=== PATIENT | female | born 2000 | race Two or more races ===

== ENCOUNTER 2025-01-19 05:30 | Emergency (ER) | payer MEDICAID, SELFPAY ==
[2025-01-19 05:36] VITALS: BMI 24.8
[2025-01-19 05:46] VITALS: BP 111/75; PULSE 98; RESP 19; TEMP 36.6; O2SAT 99
--- NOTE | 2025-01-19 05:47 | XR_ITS ---
Examination: Pelvic ultrasound, transabdominal, complete Technique: Transabdominal ultrasound of the pelvis performed using grayscale imaging Date and time of exam: January 19, 2025, 0704 hours INDICATIONS: Removal IUD 3 days ago followed by vaginal bleeding and pain FINDINGS: Intrauterine device vaginal canal Uterus 7.9 cm no uterine mass or intrauterine gestation Endometrial stripe 0.8 cm Right ovary 2.1 cm arterial flow Left ovary 2.5 cm artery with flow IMPRESSION: Intrauterine device in vaginal canal
--- NOTE | 2025-01-19 05:48 | PD.EDRME ---
Rapid Medical Screening Exam RME Arrival date/time: 01/19/25 05:30 This is a case of a 24-year-old female who came in the emergency room due to vaginal bleeding patient removed his IUD last and started to have heavy vaginal bleeding with pelvic cramping due to persistence of the symptoms this patient decided to start consult here in the emergency room Vital signs: Vital Signs Temperature 98 F 01/19/25 05:46 Pulse Rate 98 01/19/25 05:46 Respiratory Rate 19 01/19/25 05:46 Blood Pressure 111/75 01/19/25 05:46 Pulse Oximetry (%) 99 01/19/25 05:46 Oxygen Delivery Method Room Air 01/19/25 05:46
[2025-01-19 06:29] LABS: Basophils # (Auto) 0.1 Thou/mm3 (0.0-0.2); Basophils % (Auto) 1 % (0-2.5); Eosinophils # (Auto) 0.0 Thou/mm3 (0.0-0.5); Eosinophils % (Auto) 1 % (0-10); Hematocrit 41.0 % (36.0-46.0); Hemoglobin 14.5 g/dL (12.0-16.0); Immature Granulocytes Auto 0.02 Thou/mm3 (0.00-0.00); Lymphocytes # (Auto) 2.8 Thou/mm3 (1.0-4.8); Lymphocytes % (Auto) 43 % (10-50); Mean Corpuscular HGB Conc 35.4 g/dl (31.0-37.0); Mean Corpuscular Hemoglobin 31.6 pg (25.0-35.0); Mean Corpuscular Volume 89 fL (80-100); Monocytes # (Auto) 0.4 Thou/mm3 (0.0-0.8); Monocytes % (Auto) 6 % (0-12); Neutrophils # (Auto) 3.1 Thou/mm3 (1.8-7.7); Neutrophils % (Auto) 49 % (37-80); Nucleated Red Blood Cell # 0.00 Thou/mm3 (0.00-0.00); Nucleated Red Blood Cell % 0 /100 WBC (0); Platelet Count 423 Thou/mm3 (140-440); RDW Standard Deviation 40.3 fL (36.4-46.3); Red Blood Count 4.59 Miln/mm3 (4.00-5.20); White Blood Count 6.4 Thou/mm3 (3.6-11.0)
[2025-01-19 06:46] LABS: Alanine Aminotransferase 21 U/L (10-49); Albumin, Serum 5.2 gm/dL (3.5-5.0); Albumin/Globulin Ratio 1.6 (1.2-2.2); Alkaline Phosphatase 67 U/L (46-116); Anion Gap 15 (7-16); Aspartate Amino Transferase 26 U/L (0-34); BUN/Creatinine Ratio 8 Ratio (12-20); Beta HCG,Quantitative < 1 mIU/mL (<5.0); Bilirubin,Total 0.3 mg/dL (0.3-1.2); Blood Urea Nitrogen < 5 mg/dL (9-23); Calcium 9.4 mg/dL (8.3-10.6); Calcium (Corrected) 9.4 mg/dL (8.5-10.1); Carbon Dioxide 22.8 mMol/L (20.0-31.0); Chloride 109 mMol/L (98-107); Creatinine (Component) 0.6 mg/dL (0.6-1.3); Estimated Creatinine Clearance 127.1 mL/min (>60); Globulin 3.3 gm/dL (2.3-3.5); Glucose 110 mg/dL (74-106); Osmolality,Calculated 290 (275-295); Potassium 3.7 mMol/L (3.4-5.1); Sodium 147 mMol/L (136-145); Total Protein 8.5 gm/dL (5.7-8.2); eGFR > 60 See Note
[2025-01-19 08:18] VITALS: BP 106/68; PULSE 89; RESP 16; O2SAT 98
--- NOTE | 2025-01-19 08:41 | PC.NURSE ---
Patient came to the ED due to heavy vaginal bleeding since yesterday due to patient attempted to remove IUD on her own. Patient is A&O X3 Serbian speaking only. Denies pain at this time. Dr. landrum at bedside assessing patient and updating on POC.
--- NOTE | 2025-01-19 08:44 | EDNOTE_ITS ---
ED OB Contraction Preg RMI/HPI General Chief complaint: Vaginal Bleeding Stated complaint: VAG BLEEDING AFTER IUD CAME OUT Time Seen by Provider: 01/19/25 05:49 Arrival date/time: 01/19/25 05:30 Limitations: no limitations RME / HPI RME / HPI Narrative: 01/19/25 05:30 This is a case of a 24-year-old female who came in the emergency room due to vaginal bleeding patient removed his IUD last and started to have heavy vaginal bleeding with pelvic cramping due to persistence of the symptoms this patient decided to start consult here in the emergency room DR. MAMADOU EDEN ED EVALUATION: 24 year old female with no stated medical history presents to the ED for evaluation of vaginal bleeding and pelvic pain beginning 3 days ago. States 3 days ago she removed the IUD herself at home and since has had pelvic cramping and pain. Reports the amount of bleeding to be slightly more than her menses and last changed her pad 10 hours ago. States she has taken Tylenol at home which provides some relief and last took 2 days ago. No other associated symptoms or complaints reported. Related Data Allergies Allergy/AdvReac Type Severity Reaction Status Date / Time No Known Allergies Allergy Verified 01/19/25 05:41 Review of Systems Review of Systems Systems Reviewed: All systems reviewed, normal except as documented Past Medical History Past Medical History CARDIAC: Negative Congestive Heart Failure RESPIRATORY: Negative Chronic Obstructive Pulmonary Disease (COPD) GENITOURINARY: Negative Renal Disease ENDOCRINE: Negative Diabetes Mellitus Type 1 or Diabetes Mellitus Type 2 Social History SMOKING STATUS: Never smoker ED Exam General Limitations: Present no limitations General appearance: Present alert and in no apparent distress Head Head exam: Present atraumatic and normocephalic Eye Eye exam: Present normal appearance, PERRL and EOMI ENT ENT exam: Present normal exam, normal oropharynx and mucous membranes moist Neck Neck exam: Present normal inspection, full ROM and trachea midline Chest Chest inspection: Present normal inspection and symmetric chest wall rise Respiratory Respiratory exam: Present normal lung sounds bilaterally Cardiovascular Cardiovascular exam: Present regular rate, normal rhythm and normal heart sounds Abdominal Exam Abdominal exam: Present soft and normal bowel sounds External exam: Present normal external exam and other (Exam performed in presence of female chaplain, Jeaneth. no active bleeding at this time. ) Extremities Exam Extremities exam: Present normal inspection and full ROM Back Exam Back exam: Present normal inspection and full ROM Neurological Exam Neurological exam: Present alert, oriented X3 and CN II-XII intact Psychiatric Psychiatric exam: Present normal affect and normal mood Skin Skin exam: Present warm, dry, intact and normal color Course Quality Measures none Orders Category Date Time Status US pelvic complete Stat Exams 01/19/25 05:47 Completed Beta HCG,Quantitative Stat Lab 01/19/25 06:15 Completed CBC Stat Lab 01/19/25 06:15 Completed CMP [Comprehensive Metabolic Panel] Stat Lab 01/19/25 06:15 Completed Urinalysis Stat Lab 01/19/25 09:26 Completed Acetaminophen Tab [Tylenol ES Tab] Med 01/19/25 08:43 Discontinued 1,000 mg PO X1 ONE Tranexamic Acid Inj 650 mg Med 01/19/25 09:30 Discontinued Sodium Chloride 0.9% [Ns] 50 ml IV X1 Vital Signs Vital signs: Vital Signs Temperature 98 F 01/19/25 05:46 Pulse Rate 98 01/19/25 05:46 Respiratory Rate 19 01/19/25 05:46 Blood Pressure 111/75 01/19/25 05:46 Pulse Oximetry (%) 99 01/19/25 05:46 Oxygen Delivery Method Room Air 01/19/25 05:46 Pulse ox is 99% on room air which is adequate. Vaginal Bleeding MDM Narrative MDM Narrative: Jeaneth Balatzar am scribing for and in the presence of Dr. Wong. 24 year old female with no significant medical history presentedwith vaginal bleeding and pelvic pain that began 3 days ago after she reportedly self-removed her IUD at home. Since then, she has experienced pelvic cramping and slightly increased bleeding, though she last changed her pad 10 hours ago. She took Tylenol for pain, which provided partial relief. A pelvic ultrasound shows that the IUD is in the vaginal canal. Physical examination reveals no active vaginal bleeding, and CBC is unremarkable. H/H 14.5/41.0. 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 Patient data External records reviewed:: None (No previous ED visits for review) Clinical information provided by:: patient Social determinants that could affect healthcare access:: none Patient has the following chronic illnesses:: None How is presenting disease/condition affected by chronic disease/condition?: no chronic disease Evaluation data The following diagnostics were reviewed and interpreted by me:: lab results and radiology exam(s) Lab and/or radiology exams considered but not ordered:: None Interpretation Summary: Ordering Physician: Jason Robertson Date of Service: 01/19/25 Procedure(s): US pelvic complete Accession Number(s): [id number] cc: Manuel Carrasco MD; NO PRIMARY/FAMILY,PHYSICIAN; Jason Robertson~ Examination: Pelvic ultrasound, transabdominal, complete Technique: Transabdominal ultrasound of the pelvis performed using grayscale imaging Date and time of exam: January 19, 2025, 0704 hours INDICATIONS: Removal IUD 3 days ago followed by vaginal bleeding and pain FINDINGS: Intrauterine device vaginal canal Uterus 7.9 cm no uterine mass or intrauterine gestation Endometrial stripe 0.8 cm Right ovary 2.1 cm arterial flow Left ovary 2.5 cm artery with flow IMPRESSION: Intrauterine device in vaginal canal Dictated By: Manuel Carrasco MD Signed By: <Electronically signed by Manuel Carrasco MD in OV> 01/19/25 0742 Medications / Prescriptions Medications or Prescriptions considered but not ordered:: None Medication administrations:: Medication Administration History Discontinued Medications Acetaminophen (Acetaminophen 500 Mg Tablet) 1,000 mg PO X1 ONE Stop: 01/19/25 08:44 Last Admin: 01/19/25 09:19 Dose: 1,000 mg Documented By: ER Tranexamic Acid 650 mg/ Sodium (Chloride) 56.5 mls @ 226 mls/hr IV X1 ONE Stop: 01/19/25 09:44 Last Admin: 01/19/25 10:38 Dose: 226 mls/hr Documented By: ER See above Consultations Consultation(s) initiated? (list below): No Diagnosis Vaginal Bleeding Differential Diagnosis: dysfunctional uterine bleeding, menometrorrhagia and vaginal bleeding Most likely diagnosis given after review of the tests above:: Vaginal bleeding Admission Indicated Admission indicated?: not indicated Admission Request Was there a request for admission?: No Disposition Plan Disposition Plan: Discharge Discharge Attestation Discharge Attestation: The patient and all family members were given an opportunity to ask questions and understood the discharge instructions. Discharge instructions specifically effects, indications for sooner follow up or return to the emergency department, and the expected course of current diagnosis. 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 You can return to the emergency department sooner if symptoms worsen or if you notice any new, concerning issues. Print Language: Kiswahili Stand Alone Forms: [facility] Award Info., Patient Portal Info Letter
[2025-01-19] MEDS: ACETAMINOPHEN 500 MG TABLET 1000 MG PO (09:19)
[2025-01-19 09:55] LABS: Collection Type, Urine Voided
[2025-01-19 10:09] LABS: Bilirubin,Urine Negative (Negative); Blood,Urine Negative (Negative); Clarity,Urine Clear (Clear/Hazy); Color,Urine Lt-Yellow (Lt Yel-Yel); Glucose, Urine Negative (Negative); Ketones,Urine Negative (Negative); Leukocyte Esterase,Urine Negative (Negative); Nitrite,Urine Negative (Negative); PH,Urine 6.0 (5.0-7.0); Protein,Urine Negative (Neg - Trace); RBC,Urine 1 /hpf (0-3); Specific Gravity,Urine 1.008 (1.001-1.035); Squamous Epithelial Cell,Urine < 1 /hpf (0-5); Urobilinogen,Urine Negative mg/dL (0.0-1.0); WBC,Urine 1 /hpf (0-5)
[2025-01-19] MEDS: TRANEXAMIC ACID IV (10:38)
[2025-01-19] MEDS: SODIUM CHLORIDE 0.9% IV (10:38)
[2025-01-19 11:07] VITALS: PULSE 85; RESP 18; TEMP 36.7; O2SAT 99
== END 2025-01-19 11:08 | disposition home or self-care (01) ==
PROVIDERS: Nurse Practitioner Family; Emergency Provider Emergency Medicine
DX: N93.9 Abnormal uterine and vaginal bleeding, unspecified (principal)
CPT/HCPCS: 36415; 76856; 80053; 81001; 84702; 85025; 99284; J3490; A9270

== ENCOUNTER 2025-03-13 22:40 | Emergency (ER) | payer MEDICAID, SELFPAY ==
[2025-03-13 22:44] VITALS: PULSE 119; O2SAT 98; BMI 28.6
--- NOTE | 2025-03-13 22:50 | PC.NURSE ---
THIS RN WAS TALKING TO EMS WHEN PT STARTED TO SCREAM THAT SHE WANTS TO LEAVE. PT IS A&O4 WITH A GCS OF 15. THIS RN TRIED TO REDIRECT PT TO CALM DOWN AND NOT YELL. PT KEPT ON DEMANDING TO LEAVE AND STATING THAT SHE IS GOING TO CALL THE POLICE IF SHE DOESN'T LEAVE. SPOOL CLEANER FAYE NOTIFIED AND LET HER LEAVE THROUGH EMS DOOR
== END 2025-03-13 23:34 | disposition left against medical advice (07) ==
LOC: SERX 22:55
PROVIDERS: Emergency Provider Emergency Medicine
DX: Z53.21 Procedure and treatment not carried out due to patient leaving prior to being seen by health care provider (principal)
CPT/HCPCS: 99281